=== PATIENT | female | born 1965 | race Caucasian/White ===

== ENCOUNTER → 2018-04-23 11:56 | Outpatient (CLI) | payer BC, SELFPAY ==
[2018-04-23 13:41] LABS: Hemoglobin A1c 8.4 % (4.2-6.3)
[2018-04-23 13:44] LABS: Absolute Lymphocyte Count 1.08 X10^3/ul (0.83-4.51); Absolute Neutrophil Count 4.9 X10^3/uL (2.0-7.7); Basophil# 0.03 X10^3/uL; Basophil% 0.4 % (0-1); Eosinophil# 0.19 X10^3/uL; Eosinophils% 2.8 % (0-5); Hematocrit 38.9 % (37-47); Hemoglobin 11.9 g/dl (12.0-15.0); Lymphocyte # 1.08 X10^3/ul (4.0); Lymphocyte % 15.9 % (19-41); Mean Corp Hgb Conc 30.6 g/gl (32-36); Mean Corpuscular Hgb 25.4 pg (27.0-32.0); Mean Corpuscular Volume 83.1 fL (81-99); Mean Platelet Vol. 11.2 fl (6.2-12.0); Monocyte# 0.57 X10^3/uL; Monocyte% 8.4 % (0-10); Neutrophil # 4.92 X10^3/uL (2.7-7.7); Neutrophil % 72.2 % (47-70); Platelet Count 285 K/mm3 (150-450); RBC Distribution Width CV 16.2 % (11.6-14.6); RBC Distribution Width SD 48.8 fl (35.1-43.9); Red Blood Count 4.68 M/mm3 (4.2-5.4); White Blood Count 6.8 K/mm3 (4.4-11.0)
[2018-04-23 14:06] LABS: Insulin 7.8 mU/L (2.6-37.6); Vitamin B12 687 pg/mL (211-911); Vitamin D,25 Hydroxy 12.3 ng/mL (29.95-100.01)
[2018-04-23 14:11] LABS: POSITIVE COUNT NO; POSITIVE DIFFERENTIAL NO; POSITIVE MORPHOLOGY NO
[2018-04-23 19:11] LABS: ALB/GLOB Ratio 0.9 RATIO (0.9-2.4); AST(SGOT) 13 U/L (15-37); Alanine Aminotransfer ALT/SGPT 22 U/L (13-56); Albumin, Serum 3.5 g/dL (3.2-5.0); Alkaline Phosphatase 73 U/L (45-117); Anion Gap 9 (5-15); BUN 11 mg/dL (7-18); BUN/Creat Ratio 15.1 RATIO (10-20); CRP 7.73 mg/L (0.0-3.0); Calcium,Total 8.4 mg/dL (8.5-10.1); Chloride 106 mmol/L (98-107); Creatinine, Serum 0.73 mg/dL (0.55-1.02); EST Glomerular Filtration Rate 90 mL/min (>60); Est Glom Filt Rate - Afr Amer 109 mL/min (>60); Estradiol 297.3 pg/mL; Follicle Stimulating Hormone 3.8 mIU/mL; Free T3 2.4 pg/mL (2.18-3.98); Globulin 4.1 g/dL (2.2-4.2); Glucose 119 mg/dL (74-106); Potassium 3.9 mmol/L (3.5-5.1); Protein, Total 7.6 g/dL (6.4-8.2); Sodium Level 139 mmol/L (136-145); T4 Free Direct 0.96 ng/dL (0.76-1.46); Thyroid Stim Hormone (TSH) 5.16 uIU/mL (0.358-3.74)
[2018-04-26 20:06] LABS: Testosterone, % Free 1.57 % (0.50-2.80); Testosterone, Free 0.13 ng/dL (0.10-0.85); Testosterone, Total 8 ng/dL (3-41)
[2018-04-28 16:09] LABS: Insulin Like Growth Factor 165 ng/mL (57-195)
== END ==
DX: N95.1 Menopausal and female climacteric states (principal); R53.83 Other fatigue; R68.82 Decreased libido; E07.9 Disorder of thyroid, unspecified; E55.9 Vitamin D deficiency, unspecified; E53.8 Deficiency of other specified B group vitamins; R73.01 Impaired fasting glucose; E16.1 Other hypoglycemia; E23.3 Hypothalamic dysfunction, not elsewhere classified; R79.82 Elevated C-reactive protein (CRP)
CPT/HCPCS: 36415; 80053; 82306; 82607; 82670; 82746; 83001; 83036; 83525; 84144; 84305; 84402; 84403; 84439; 84443; 84481; 85025; 86140

== ENCOUNTER → 2018-07-23 14:19 | Outpatient (CLI) | payer BC, SELFPAY ==
[2018-07-23 15:10] LABS: Hemoglobin A1c 7.4 % (4.2-6.3)
[2018-07-23 15:13] LABS: ALB/GLOB Ratio 1.1 RATIO (0.9-2.4); AST(SGOT) 16 U/L (15-37); Alanine Aminotransfer ALT/SGPT 23 U/L (13-56); Albumin, Serum 3.8 g/dL (3.2-5.0); Alkaline Phosphatase 68 U/L (45-117); BUN 13 mg/dL (7-18); BUN/Creat Ratio 18.4 RATIO (10-20); Calcium,Total 8.7 mg/dL (8.5-10.1); Creatinine, Serum 0.71 mg/dL (0.55-1.02); EST Glomerular Filtration Rate 93 mL/min (>60); Est Glom Filt Rate - Afr Amer 112 mL/min (>60); Globulin 3.6 g/dL (2.2-4.2); Glucose 114 mg/dL (74-106); Protein, Total 7.4 g/dL (6.4-8.2); Sodium Level 140 mmol/L (136-145)
[2018-07-23 15:14] LABS: Anion Gap 10 (5-15); CRP 5.41 mg/L (0.0-3.0); Chloride 105 mmol/L (98-107); Free T3 2.1 pg/mL (2.18-3.98); T4 Free Direct 0.92 ng/dL (0.76-1.46); Thyroid Stim Hormone (TSH) 3.49 uIU/mL (0.358-3.74)
[2018-07-28 15:21] LABS: T3 Reverse 22.4 ng/dL (9.2-24.1)
== END ==
DX: E07.9 Disorder of thyroid, unspecified (principal); R73.01 Impaired fasting glucose; R79.82 Elevated C-reactive protein (CRP)
CPT/HCPCS: 36415; 80053; 83036; 84439; 84443; 84481; 84482; 86140

== ENCOUNTER 2020-04-08 18:50 | Emergency (ER) | payer OTHER, SELFPAY ==
[2020-04-08 18:51] VITALS: BP 124/80; PULSE 124; RESP 20; TEMP 38.7; O2SAT 96; BMI 31.0
[2020-04-08] MEDS: Ibuprofen 600 MG Tablet PO (19:20)
--- NOTE | 2020-04-08 19:44 | EKG12_ITS ---
Test Reason : DYSRHYTHMIA Blood Pressure : / mmHG Vent. Rate : 093 BPM Atrial Rate : 093 BPM P-R Int : 134 ms QRS Dur : 088 ms QT Int : 338 ms P-R-T Axes : 046 -16 008 degrees QTc Int : 420 ms Normal sinus rhythm Poor R- wave Progression Confirmed by LADONNA RAMACHANDRAN, [place] ([id number]), scientific publications editor NIRANJAN RAINES ([id number]) on 04/11/2020 2:18:12 PM Referred By: RONNI Confirmed By:CHEYENNE DOUGHERTY MD
--- NOTE | 2020-04-08 19:53 | ED.DCSUM_ITS ---
History of Present Illness Chief Complaint: Fever Informant: Patient Narrative: 54-year-old female with no past medical history presents with concern for fever, chills, cough, malaise. States that this is been present for the past 1 week. States that she had exposure to someone with coronavirus 2 weeks ago. Denies any nausea, vomiting, chest pain, diaphoresis. States that she feels that she has not been eating and drinking well. Patient is not a current smoker. Past Medical History - Allergies and Home Meds Allergies/Adverse Reactions: Allergies No Known Allergies Allergy (Verified 04/08/20 18:51) Primary Care Physician: Care Physician,No Primary [Primary Care Provider] - Prior records reviewed: Yes Past Medical History: None Surgical History: noncontributory Lives: With Family Smoking Status: Never smoker Alcohol: None Drugs: None Review of Systems General: Reports: Chills, Fever, Malaise. Denies: Sweats Eyes: Denies: Visual changes - bilaterally, Diplopia ENT: Denies: Rhinorrhea, Sore throat Cardiovascular: Denies: Chest pain, Palpitations Respiratory: Reports: Cough. Denies: Dyspnea, Dyspnea on exertion Gastrointestinal: Denies: Abdominal pain, Nausea, Vomiting, Diarrhea, Melena, Hematochezia Genitourinary: Denies: Dysuria, Hematuria, Frequency Musculoskeletal: Denies: Back pain, Extremity Pain Skin: Denies: Rash, Wounds Neurological: Denies: Headache, Weakness, Numbness Physical Exam Vital Signs/Narrative: Vital Signs Temp Pulse Resp BP Pulse Ox 04/08/20 18:51 101.6 F H 124 H 20 H 124/80 H 96 Inital Vital Signs reviewed: Yes General: Well nourished, Well developed, No Acute Distress Head: Normocephalic, Atraumatic Eyes: Perrl, EOMI ENT: Moist mucous membranes, No rhinorrhea Neck: Supple, Nontender Cardiovascular: Regular rhythm, No murmurs, Tachycardia Respiratory: No distress, Chest nontender, - - Bilateral coarse breathe sounds Abdomen: Soft, Nontender, Nondistended, Normal bowel sounds Back: Nontender, Normal Inspection Extremities: Nontender, No edema Skin: Normal color, No rash Neurological: Alert, Oriented x3, Cranial nerves II-XII grossly intact, Normal Strength, Normal Sensation Psychological: Normal affect, Normal Mood Diagnostic/Tx/Re-eval Clinical Impression(s) from Imaging Studies Chest X-Ray 04/08/20 20:25 IMPRESSION: Patchy small bilateral pulmonary infiltrates consistent with a pneumonic process of viral/atypical or typical nature. Electronically Signed: Juliana Woodall MD at 20:41 EST , Service support , Laboratory Data 04/08/20 04/08/20 04/08/20 20:23 20:23 20:23 WBC 8.0 RBC 4.29 Hgb 12.8 Hct 39.1 MCV 91.1 MCH 29.8 MCHC 32.7 RDW Std Deviation 40.6 RDW Coeff of Batsheva 12.2 Plt Count 239 MPV 10.3 Immature Gran % (Auto) 0.600 Neut % (Auto) 86.5 H Lymph % (Auto) 6.8 L [place] % (Auto) 5.8 Eos % (Auto) 0.0 Baso % (Auto) 0.3 Absolute Neuts (auto) 6.9 Absolute Lymphs (auto) 0.54 L Nucleated RBC % 0 Differential Comment SCANNED PT 13.8 INR 1.1 APTT 33.2 Sodium 135 L Potassium 3.6 Chloride 103 Carbon Dioxide 24.0 Anion Gap 8 BUN 8 Creatinine 0.76 Estim Creat Clear Calc 71.63 Est GFR (MDRD) Af Amer 102 Est GFR (MDRD) Non-Af 85 BUN/Creatinine Ratio 10.5 Glucose 167 H Lactic Acid Calcium 8.4 L Total Bilirubin 0.70 AST 16 ALT 23 Alkaline Phosphatase 72 Troponin I < 0.015 Total Protein 7.5 Albumin 2.9 L Globulin 4.6 H Albumin/Globulin Ratio 0.6 L 04/08/20 20:23 WBC RBC Hgb Hct MCV MCH MCHC RDW Std Deviation RDW Coeff of Batsheva Plt Count MPV Immature Gran % (Auto) Neut % (Auto) Lymph % (Auto) [place] % (Auto) Eos % (Auto) Baso % (Auto) Absolute Neuts (auto) Absolute Lymphs (auto) Nucleated RBC % Differential Comment PT INR APTT Sodium Potassium Chloride Carbon Dioxide Anion Gap BUN Creatinine Estim Creat Clear Calc Est GFR (MDRD) Af Amer Est GFR (MDRD) Non-Af BUN/Creatinine Ratio Glucose Lactic Acid 0.9 Calcium Total Bilirubin AST ALT Alkaline Phosphatase Troponin I Total Protein Albumin Globulin Albumin/Globulin Ratio - Rhythm Strip Rhythm Strip: Sinus Rhythm Rate: 93 Ectopy: None - EKG Initial EKG Interpretation: Sinus Rhythm - Normal sinus rhythm at 93 bpm. WI interval 134 ms. QTC of 420 ms. No evidence of ST elevation or depression at this time. - Medical Decision Making Patient appears well nontoxic. Initially febrile and tachycardic. Given Tylenol which improved her symptoms. Chest x-ray concerning for viral pneumonia. No hypoxemia. KG nonischemic. Troponin negative. Patient will be discharged home and advised on continued supportive care. Outpatient Covid testing will be sent. Asked to return for worsening shortness of breath. Patient agreeable and discharged home in stable condition. Impression: 1. URI 2. Possible COVID 19 pneumonitis ED Disposition - Plan for ED Patient: Disposition: Home or Assisted Living Instructions: ED PNEUMONITIS Adult Additional Instructions: Please return for worsening shortness of breathe. Follow up with PCP in 1-2 days. Print Language: Indian
[2020-04-08 20:07] VITALS: O2SAT 96
[2020-04-08 20:25] VITALS: TEMP 37.9
--- NOTE | 2020-04-08 20:25 | RAD_ITS ---
STUDY: X-RAY CHEST REASON FOR EXAM: Female, 54 years old. fever, cough, loss of taste and smell TECHNIQUE: 1 view COMPARISON: None. FINDINGS: The lung gardner are well-expanded with small bilateral infiltrates in the mid lung zones, lower lung zones and right upper lobe. There is no demonstrated pleural abnormality. Normal size heart. Normal mediastinum and ramon. Normal visualized pulmonary arteries. Normal visualized aortic arch and descending thoracic aorta. Normal visualized thoracic spine. Normal visualized ribs, clavicles, and shoulders. There is no demonstrated abnormality of the visualized soft tissue structures of the upper abdomen. RAD/Chest 1 View (Portable) IMPRESSION: Patchy small bilateral pulmonary infiltrates consistent with a pneumonic process of viral/atypical or typical nature. Electronically Signed: Juliana Woodall MD at 20:41 EST , Service support ,
--- NOTE | 2020-04-08 20:30 | ED.RN ---
PT TOOK TYLENOL AT 1700. PER DR. CONNORS, OK TO HOLD MEDICATION AT THIS TIME.
[2020-04-08 20:35] LABS: Absolute Lymphocyte Count 0.54 X10^3/uL (0.83-4.51); Absolute Neutrophil Count 6.9 X10^3/uL (2.0-7.7); Basophil# 0.02 X10^3/uL; Basophil% 0.3 % (0-1); Hematocrit 39.1 % (37-47); Hemoglobin 12.8 g/dL (12.0-15.0); Lymphocyte # 0.54 X10^3/ul (4.0); Lymphocyte % 6.8 % (19-41); Mean Corp Hgb Conc 32.7 g/dL (32-36); Mean Corpuscular Hgb 29.8 pg (27.0-32.0); Mean Corpuscular Volume 91.1 fL (81-99); Mean Platelet Vol. 10.3 fl (6.2-12.0); Monocyte# 0.46 X10^3/uL; Monocyte% 5.8 % (0-10); NRBC Flagged by Analyzer 0 % (0-5); Neutrophil # 6.91 X10^3/uL (2.7-7.7); Neutrophil % 86.5 % (47-70); POSITIVE DIFFERENTIAL YES; Platelet Count 239 K/mm3 (150-450); RBC Distribution Width CV 12.2 % (11.6-14.6); RBC Distribution Width SD 40.6 fl (35.1-43.9); Red Blood Count 4.29 M/mm3 (4.2-5.4)
[2020-04-08 20:41] LABS: Differential Indicated SCAN CRITERIA MET
[2020-04-08 20:44] LABS: International Normalized Ratio 1.1; Prothrombin Time (Protime)PT. 13.8 SECONDS (11.7-14.9)
[2020-04-08 20:45] LABS: Partial Thromboplast Time 33.2 Seconds (24.1-36.2)
[2020-04-08 20:57] LABS: Lactic Acid 0.9 mmol/L (0.4-1.9)
[2020-04-08 21:04] LABS: ALB/GLOB Ratio 0.6 RATIO (0.9-2.4); AST(SGOT) 16 U/L (15-37); Alanine Aminotransfer ALT/SGPT 23 U/L (13-56); Albumin, Serum 2.9 g/dL (3.2-5.0); Alkaline Phosphatase 72 U/L (45-117); Anion Gap 8 (5-15); BUN 8 mg/dL (7-18); BUN/Creat Ratio 10.5 RATIO (10-20); Calcium,Total 8.4 mg/dL (8.5-10.1); Chloride 103 mmol/L (98-107); Creatinine, Serum 0.76 mg/dL (0.55-1.02); Differential Comment SCANNED; EST Glomerular Filtration Rate 85 mL/min (>60); Est Glom Filt Rate - Afr Amer 102 mL/min (>60); Estimated Creatinine Clearance 71.63 ml/min; Globulin 4.6 g/dL (2.2-4.2); Glucose 167 mg/dL (74-106); Potassium 3.6 mmol/L (3.5-5.1); Protein, Total 7.5 g/dL (6.4-8.2); Sodium Level 135 mmol/L (136-145)
[2020-04-08 21:26] LABS: Bacteria 0 SEEN /hpf (None Seen); Red Blood Cells-Urine 0 SEEN /hpf (0-5); White Blood Cells 0 SEEN /hpf (0-5)
[2020-04-08 21:27] LABS: Color, Urine Amber (Yellow); Glucose, Dipstick Normal (Normal); Leukocyte Esterase-Dipstick 25 /ul (Negative); Nitrite-Dipstick Negative (Negative); Occult Blood-Urine 10 /ul (Negative); Protein-Dipstick 30 mg/dl (Negative); Specific Gravity, Urine 1.015 (1.002-1.030); Urine Clarity Clear (Clear); Urine Urobilinogen 1 mg/dl (Normal)
[2020-04-08 21:37] VITALS: TEMP 37.3
[2020-04-08 21:39] VITALS: PULSE 58; RESP 18; O2SAT 92
[2020-04-08 22:07] LABS: Urine Bilirubin Dipstick 1 mg/dL (Negative)
[2020-04-08 22:08] LABS: Ketone-Dipstick 150 mg/dl (Negative)
[2020-04-08 22:09] LABS: Mucous, Urine RARE /hpf (<or=2+); Squamous Epithelial Cells - UA 0-5 SEEN /hpf (5-10)
[2020-04-08 23:04] VITALS: BP 99/58; PULSE 87; RESP 18; TEMP 37.2; O2SAT 97
== END 2020-04-08 22:55 | disposition home or self-care (01) ==
PROVIDERS: Emergency Provider Emergency Medicine
DX: U07.1 COVID-19 (principal); J12.89 Other viral pneumonia
CPT/HCPCS: 36415; 71045; 80053; 81001; 83605; 84484; 85025; 85610; 85730; 87040; 87086; 87088; 87635; 93005; 99285; U0003

== ENCOUNTER → 2021-02-10 10:47 | Outpatient (CLI) | payer OTHER, SELFPAY ==
[2021-02-10 11:14] LABS: Hemoglobin 14.3 g/dL (12.0-15.0); Mean Corp Hgb Conc 33.3 g/dL (32-36); Mean Corpuscular Hgb 30.2 pg (27.0-32.0); Mean Corpuscular Volume 90.9 fL (81-99); Mean Platelet Vol. 9.8 fl (6.2-12.0); Platelet Count 250 K/mm3 (150-450); RBC Distribution Width CV 11.8 % (11.6-14.6); RBC Distribution Width SD 39.6 fl (35.1-43.9); Red Blood Count 4.73 M/mm3 (4.2-5.4); White Blood Count 5.7 K/mm3 (4.4-11.0)
[2021-02-10 11:43] LABS: Vitamin D,25 Hydroxy 36.9 ng/mL
[2021-02-10 11:49] LABS: Anion Gap 6 (5-15); BUN 13 mg/dL (7-18); BUN/Creat Ratio 17.9 RATIO (10-20); Chloride 104 mmol/L (98-107); Creatinine, Serum 0.73 mg/dL (0.55-1.02); EST Glomerular Filtration Rate 89 mL/min (>60); Est Glom Filt Rate - Afr Amer 107 mL/min (>60); Glucose 215 mg/dL (74-106); Potassium 4.5 mmol/L (3.5-5.1); Sodium Level 137 mmol/L (136-145); Thyroid Stim Hormone (TSH) 5.15 uIU/mL (0.358-3.74)
== END ==
PROVIDERS: PCP Student in an Organized Health Care Education/Training Program; Referring Provider Student in an Organized Health Care Education/Training Program; Visit Provider Student in an Organized Health Care Education/Training Program
DX: R03.0 Elevated blood-pressure reading, without diagnosis of hypertension (principal); E01.0 Iodine-deficiency related diffuse (endemic) goiter; E55.9 Vitamin D deficiency, unspecified; Z86.16 Personal history of COVID-19
CPT/HCPCS: 36415; 80048; 82306; 84443; 85027

== ENCOUNTER 2021-10-18 21:19 | Emergency (ER) | payer OTHER, SELFPAY ==
[2021-10-18 21:20] VITALS: BP 177/101; PULSE 107; RESP 18; TEMP 36.7; O2SAT 98; BMI 31.8
--- NOTE | 2021-10-18 22:08 | CT_ITS ---
STUDY: CT SOFT TISSUE NECK WITH CONTRAST REASON FOR EXAM: Female, 56 years old. posterior neck abscess RADIATION DOSAGE (If Supplied By Facility): CTDIvol = ( 17.97 ) mGy, DLP = ( 529.85 ) mGycm TECHNIQUE: The patient was scanned in a multi-detector CT scanner. High resolution transaxial imaging was performed following intravenous administration of IV 75mL Isovue-370. Sagittal and coronal images were reconstructed. Individualized dose optimization techniques were used for this CT. COMPARISON: None. FINDINGS: There is induration of the posterior midline subcutaneous tissue. This extends over a distance of 4 cm. The margins are irregular making it difficult to accurately measure. There is a small amount of air within this structure just to the left of the midline consistent with abscess formation. There is overlapping skin thickening as well. There is a gap in the skin thickening in the midline which may be a drainage focus. CT/Soft Tissue Neck WITH Contrast IMPRESSION: There is a 4 cm abscess in the midline posteriorly. Electronically Signed: Roberto Childers MD at 0:26 EDT ,
--- NOTE | 2021-10-18 22:09 | EX.ED.DYSGE1 ---
HPI History of Present Illness Chief Complaint: Abscess Informant: patient and spouse/S.O. Narrative Narrative: 56-year-old female presenting to the emergency department with a neck abscess. Patient states that she scratched the back of her neck about 10 days ago and it is progressively worsened. She notes pain and swelling. There has been some drainage from it. She has never had anything like this before. She states that she is technically a diabetic. She denies any fevers. There is no arm symptoms/neurologic symptoms. PFSH REPLACED BY [facility] Medical History Diabetes Home Medications cephalexin 500 mg PO Q6 #40 capsule 10/19/21 [Rx Last Taken Unknown] oxycodone-acetaminophen 1 tab PO Q6H PRN PRN 3 Days #12 tablet 10/19/21 [Rx Last Taken Unknown] sulfamethoxazole-trimethoprim 1 tab PO BID #20 tablet 10/19/21 [Rx Last Taken Unknown] Allergy/AdvReac Type Severity Reaction Status Date / Time No Known Allergies Allergy Verified 10/18/21 21:21 Social History (Updated 10/18/21 @ 22:[address] Benito Clemens, DO) current gender identity: female Smoking Status: Never smoker ROS ROS ED Constitutional Constitutional ED: Denies chills, fever(s) or weight loss Eyes Eyes: Denies change in vision or diplopia ENT ENT ED: Denies ear pain, rhinorrhea or sore throat Cardiovascular Cardiovascular: Denies chest pain, orthopnea, palpitations or racing heartbeat Respiratory/Chest Respiratory/Chest: Denies cough, dyspnea or orthopnea Gastrointestinal Gastrointestinal: Denies abdominal pain, diarrhea, nausea or vomiting Genitourinary Genitourinary ED: Denies dysuria, hematuria or urinary frequency Musculoskeletal Musculoskeletal: Reports neck pain; Denies arthralgias or myalgias Integumentary Reports abscess; Denies rash Neurologic Neurologic: Denies headache(s) or weakness Psychiatric Psychiatric: Denies anxiety, depression, suicidal ideation or suicidal thoughts Endocrine Endocrinology: Denies polydipsia, polyphagia or polyuria Allergic/Immunologic Allergic/Immunologic ED: Denies mouth swelling, tongue swelling or urticaria EXAM Physical Exam Const Vital Signs: 10/18/21 21:20 Temperature 98.1 F Temperature Source Temporal Pulse Rate 107 H Respiratory Rate 18 Blood Pressure 177/101 H Blood Pressure Mean 126 Pulse Ox 98 Oxygen Delivery Method Room Air Positive well nourished and well developed General Appearance ED: well developed HEENT Reports normocephalic, head/scalp atraumatic, TM's clear and moist mucous membranes Negative for trauma Tympanic Membrane ED: Yes TM's clear Eyes PERRL and EOMs intact bilaterally Neck no lymphadenopathy, supple and no JVD Neck Narrative: There is a large firm area in the posterior neck. There is some erythema and a central area that is opened and has purulence from it. Resp normal respiratory effort and clear to auscultation bilaterally Cardio regular rate, regular rhythm and no murmurs GI normal to inspection, nondistended, normoactive bowel sounds and non-tender Palpation: soft Back/Spine no CVA tenderness and normal ROM Extremity normal to inspection General Extremety ED: Negative for edema General Extremity: Negative for edema Neuro oriented x3, CN's II-XII intact bilaterally and no sensory deficits noted Sensorium / Orientation: alert Sensory Exam: No sensory level loss detected Motor Exam: strength 5/5 throughout Psych mental status grossly normal Mood & Affect: Negative for depressed or tearful Skin no rashes or lesions noted and no wounds MDM MDM MDM Narrative Medical decision making narrative: White blood cell count 9.5. Glucose 253. CT of the neck demonstrates a 4 cm abscess in the midline posteriorly. As I review it and I also reviewed the wound I do not feel an area of fluctuance. There is a small foci of air that I see on the CT. In discussing with the patient and her regarding I&D think it is reasonable to try to find this area which most likely is deeper than expected. The area was washed with Betadine allowed to dry. 1% lidocaine instilled into the wound. A incision was made. Only blood was removed. The wound was then probed using curved hemostats. A pocket was found and opened with a moderate amount of purulence drained. This was irrigated and packing placed. Wound culture will be sent. She will be discharged home on Keflex and Bactrim and oxycodone first doses here. Patient was advised on home care return instructions and removing the packing in 72 hours. Lab Data Attestation: I reviewed the patient's lab results. Labs: Laboratory Results - last 24 hr 10/18/21 10/18/21 22:20 22:20 WBC 9.5 RBC 4.51 Hgb 13.7 Hct 40.9 MCV 90.7 MCH 30.4 MCHC 33.5 RDW Std Deviation 39.8 RDW Coeff of Batsheva 11.9 Plt Count 275 MPV 9.8 Immature Gran % (Auto) 0.600 Neut % (Auto) 79.8 H Lymph % (Auto) 9.7 L [place] % (Auto) 7.0 Eos % (Auto) 2.5 Baso % (Auto) 0.4 Absolute Neuts (auto) 7.6 Absolute Lymphs (auto) 0.92 Nucleated RBC % 0 Sodium 138 Potassium 4.1 Chloride 108 H Carbon Dioxide 24.0 Anion Gap 6 BUN 12 Creatinine 0.74 Estim Creat Clear Calc 71.89 Est GFR (MDRD) Af Amer 106 Est GFR (MDRD) Non-Af 87 BUN/Creatinine Ratio 16.3 Glucose 253 H Calcium 9.0 Radiography Diagnostic Testing: Clinical Impression(s) from Imaging Studies Soft Tissue Neck CT 10/18/21 22:08 IMPRESSION: There is a 4 cm abscess in the midline posteriorly. Electronically Signed: Roberto Childers MD at 0:26 EDT , Discharge Plan Triage Chief Complaint: Abscess ED Provider: Benito Clemens Dx/Rx/DC Orders Clinical Impression: Cutaneous abscess of neck Instructions: ED Abscess Antibiotic Treatment Only Prescriptions: New oxycodone-acetaminophen [oxycodone-acetaminophen] 1 TABLET tablet 1 tab PO Q6H PRN PRN (Reason: Pain) 3 Days Qty: 12 RF: 0 cephalexin [cephalexin] 500 MG capsule 500 mg PO Q6 Qty: 40 RF: 0 sulfamethoxazole-trimethoprim [sulfamethoxazole-trimethoprim] 1 TABLET tablet 1 tab PO BID Qty: 20 RF: 0 Primary Care Provider: Gennaro Talley Referrals: Gennaro Talley DO [Primary Care Provider] - As Needed Disposition Disposition: Home, Self Care
[2021-10-18 22:34] LABS: Absolute Lymphocyte Count 0.92 X10^3/uL (0.83-4.51); Absolute Neutrophil Count 7.6 X10^3/uL (2.0-7.7); Basophil# 0.04 X10^3/uL; Basophil% 0.4 % (0-1); Eosinophil# 0.24 X10^3/uL; Eosinophils% 2.5 % (0-5); Hematocrit 40.9 % (37-47); Hemoglobin 13.7 g/dL (12.0-15.0); Lymphocyte # 0.92 X10^3/ul (0.83-4.51); Lymphocyte % 9.7 % (19-41); Mean Corp Hgb Conc 33.5 g/dL (32-36); Mean Corpuscular Hgb 30.4 pg (27.0-32.0); Mean Corpuscular Volume 90.7 fL (81-99); Mean Platelet Vol. 9.8 fl (6.2-12.0); Monocyte# 0.67 X10^3/uL; NRBC Flagged by Analyzer 0 % (0-5); Neutrophil % 79.8 % (47-70); Platelet Count 275 K/mm3 (150-450); RBC Distribution Width CV 11.9 % (11.6-14.6); RBC Distribution Width SD 39.8 fl (35.1-43.9); Red Blood Count 4.51 M/mm3 (4.2-5.4); White Blood Count 9.5 K/mm3 (4.4-11.0)
[2021-10-18 22:47] LABS: Anion Gap 6 (5-15); BUN 12 mg/dL (7-18); BUN/Creat Ratio 16.3 RATIO (10-20); Chloride 108 mmol/L (98-107); Creatinine, Serum 0.74 mg/dL (0.55-1.02); EST Glomerular Filtration Rate 87 mL/min (>60); Est Glom Filt Rate - Afr Amer 106 mL/min (>60); Estimated Creatinine Clearance 71.89 ml/min; Glucose 253 mg/dL (74-106); Potassium 4.1 mmol/L (3.5-5.1); Sodium Level 138 mmol/L (136-145)
[2021-10-18] MEDS: Smz/Tmp Ds Tablet 1 TABLET PO (23:37)
[2021-10-18] MEDS: Cephalexin 250 MG Capsule 500 MG PO (23:37)
[2021-10-19] MEDS: oxyCODONE 5 MG Tablet 10 MG PO (00:40)
[2021-10-19] MEDS: Lidocaine 1% (20 ml mdv) 20 ML Vial INFILT (00:58)
== END 2021-10-19 01:07 | disposition home or self-care (01) ==
PROVIDERS: Emergency Provider Emergency Medicine; PCP Student in an Organized Health Care Education/Training Program; Visit Provider Emergency Medicine
DX: L02.11 Cutaneous abscess of neck (principal)
CPT/HCPCS: 10061; 70491; 80048; 85025; 87070; 87077; 87186; 87205; 99283; Q9967

== ENCOUNTER 2021-10-30 06:23 | Emergency (ER) | payer OTHER, SELFPAY ==
[2021-10-30 06:24] VITALS: BP 176/95; PULSE 97; RESP 15; TEMP 36.2; O2SAT 99; BMI 32.3
--- NOTE | 2021-10-30 07:20 | EDS_ITS ---
HPI History of Present Illness Chief Complaint: Abscess Informant: patient Narrative Narrative: Patient was here about 12 days ago and had I&D of an abscess. She had had slow building up for about 7 days prior to that. She states it was on the neck but kind of spread out over the shoulders. She had it drained. The wick stayed in for 3 days. She took her Bactrim and Keflex. She was doing well. She states the swelling went down significantly. She is feeling better. But she shows up because she notices just over the last day it starting to get a little bit firm again. Its not spreading out yet. It is getting a little redder. No drainage. She has not had fevers chills. She states she feels well. Her blood sugars she has been checking a couple times a day. They have always been running in the low 100s. No numbness tingling weakness. She can move her neck well. She states is overall still much better than when she was first here but it started to turn around and get a little bit worse just over the last 1 to 2 days. [facility] Medical History Diabetes Home Medications NK 10/30/21 [History Last Taken Unknown] clindamycin HCl [Cleocin HCl] 300 mg PO Q6H #40 cap 10/30/21 [Rx Last Taken Unknown] Allergy/AdvReac Type Severity Reaction Status Date / Time No Known Allergies Allergy Verified 10/30/21 06:27 Social History Smoking Status: Never smoker ROS ROS ED Constitutional Constitutional ED: Denies chills, fever(s), subjective or sweats ENT ENT ED: Reports other Details: See history of present illness peer ; Denies rhinorrhea Cardiovascular Cardiovascular: Denies chest pain or palpitations Respiratory/Chest Respiratory/Chest: Denies cough or dyspnea Gastrointestinal Gastrointestinal: Denies nausea or vomiting Musculoskeletal Musculoskeletal: Reports neck pain; Denies arthralgias or myalgias Integumentary Reports other Details: See history of present illness Neurologic Neurologic: Denies headache(s), paresthesias or weakness Endocrine Endocrinology: Reports other Details: Blood sugars have been well controlled in the low 100s. ; Denies polydipsia or polyuria Allergic/Immunologic Allergic/Immunologic ED: Denies urticaria EXAM Physical Exam Const Vital Signs: 10/30/21 06:24 Temperature 97.2 F L Temperature Source Temporal Pulse Rate 97 Respiratory Rate 15 Blood Pressure 176/95 H Blood Pressure Mean 122 Pulse Ox 99 Oxygen Delivery Method Warm Humidified Isolette Positive well nourished and well developed General Appearance ED: well developed and NAD; Negative for cyanotic or diaphoretic HEENT Reports moist mucous membranes Negative for trauma or tenderness Eyes EOMs intact bilaterally Neck Neck Narrative: There is an area of erythema on the back of her neck that is about 2 to 2-1/2 cm around. In the center there is about a 5 mm area that looks a bit white. This area is firm but is not fluctuant. It does not spread out from past this area. Chest Wall inspection of chest normal Resp normal respiratory effort and clear to auscultation bilaterally Cardio regular rate and regular rhythm Neuro Sensorium / Orientation: alert Skin Skin Narrative: See above MDM MDM MDM Narrative Medical decision making narrative: I discussed options with the patient. She states is nowhere near as bad as it was when she came in the first time but it is trending toward worse since she stopped the antibiotics. I explained that I would like to avoid doing a CT if we can as she just had that done. She is afebrile and her blood sugars have been well controlled. We agreed to do a bedside ultrasound. This did show a small pocket of fluid that was about 1 cm deep directly below the white central area. We agreed to proceed with drainage. There is not a large pocket but I think it still worth draining. Procedure: Incision and drainage of abscess: The area around the wound was prepped and draped. It was cleansed with alcohol. I injected 1% lidocaine without epinephrine around the area. Total of 1.5 cc. Good anesthesia. An 11 blade was used to incise right in the center where we had seen the area on ultrasound. We got some slight blood and purulence out of this. It was not a large amount but the pocket on ultrasound was well less than a centimeter around. We broke up loculations. No further purulence was obtained. It was rinsed. We placed a wick in the area and this will stay in for several days. I will send the patient home on clindamycin. I explained to the patient that if she has increasing pain, redness, fevers, nausea, rising sugar she should come back in. At that point we would want to pursue further blood work and CTs. It is even possible she may need admission or even a more formal procedure. But at this time she overall feels well but is just trending toward worse. Hopefully with drainage and antibiotics we can get this better. Discharge Plan Triage Chief Complaint: Abscess ED Provider: Asher Cartagena Dx/Rx/DC Orders Clinical Impression: Abscess of neck Instructions: ED Abscess Incision And Drainage Prescriptions: New clindamycin HCl [Cleocin HCl] 300 MG capsule 300 mg PO Q6H Qty: 40 RF: 0 No Action NK RF: 0 Primary Care Provider: Gennaro Talley Referrals: Gennaro Talley DO [Primary Care Provider] - 3-5 Days Disposition Disposition: Home, Self Care
[2021-10-30] MEDS: Lidocaine 1% (20 ml mdv) 20 ML Vial INFILT (07:37)
[2021-10-30 07:38] VITALS: BP 129/74; PULSE 61; RESP 15; O2SAT 98
[2021-10-30] MEDS: Clindamycin HCl 150 MG Capsule 300 MG PO (07:38)
== END 2021-10-30 07:38 | disposition home or self-care (01) ==
PROVIDERS: Emergency Provider Emergency Medicine; PCP Student in an Organized Health Care Education/Training Program; Visit Provider Emergency Medicine
DX: L02.11 Cutaneous abscess of neck (principal)
CPT/HCPCS: 10061; 10060; 99283

== ENCOUNTER 2023-07-17 17:11 | Emergency (ER) | payer OTHER, SELFPAY ==
[2023-07-17 17:13] VITALS: BP 153/95; PULSE 123; RESP 18; TEMP 36.6; BMI 32.3
[2023-07-17 17:16] VITALS: BP 153/95; PULSE 123; RESP 18; TEMP 36.6
--- NOTE | 2023-07-17 17:27 | EX.ED.DYSGE1 ---
HPI History of Present Illness Chief Complaint: [facility]cess [facility] Medical History Diabetes Home Medications clindamycin HCl 300 mg capsule (Cleocin HCl) 300 mg PO Q6H #40 caps 10/30/21 [Rx Last Taken Unknown] cephalexin 500 mg capsule 500 mg PO TID #21 caps 07/17/23 [Rx Last Taken Unknown] sulfamethoxazole 800 mg-trimethoprim 160 mg tablet (Bactrim DS) 1 tab PO BID #14 tabs 07/17/23 [Rx Last Taken Unknown] Allergy/AdvReac Type Severity Reaction Status Date / Time No Known Allergies Allergy Verified 07/17/23 17:12 Social History Smoking Status: Never smoker EXAM Physical Exam Const Vital Signs: 07/17/23 17:13 07/17/23 17:16 Temperature 97.9 F 97.9 F Temperature Source Temporal Temporal Pulse Rate 123 H 123 H Respiratory Rate 18 18 Blood Pressure 153/95 H 153/95 H Blood Pressure Mean 114 114 MDM MDM MDM Narrative Medical decision making narrative: HISTORY OF PRESENT ILLNESS: 57 F here with concerns for boils on back of head. NOtes this began 1 week ago. States has history of diabetes but does functional medicine to treat it. sHe is not on any antidiabetic medicine at this time. Notes she had increased swelling, tenderness to palpation and redness to the her posterior occiput. Denies any fevers or chills. Denies any neck stiffness. REVIEW OF SYSTEMS: Pertinent positives: boil Pertinent negatives: Fevers, chills, neck stiffness PHYSICAL EXAM: Nursing triage notes reviewed, Vital signs reviewed Constitutional: please see mdm Skin: Erythematous area approximately 8 x 8 cm noted to the posterior occiput, there is induration but no fluctuance. Ultrasound applied and showed no evidence of obvious drainable abscess showed a small approximately 1 cc amount of fluid. Also noted purulent drainage from the site. No crepitus, no bullae, no pain out of proportion to exam. MEDICAL DECISION MAKING: Chief Complaint: Boil External records reviewed: Seen in 2021 for similar. Factors affecting care: Type 2 diabetes MDM Narrative: Patient was initially tachycardic, afebrile, nontoxic-appearing. Exam with induration however ultrasound showed no evidence of drainable abscess. Area had white-yellow discharge consistent with an already draining likely abscess. There is no clinical evidence suggest necrotizing fasciitis. No indication for incision and drainage at this time. Gave oral antibiotics (bactrim and keflex). Gave strict return precautions. The patient and/or family, caregivers express understanding. The patient and/or family, caregivers agrees with the plan. Shared decision making: I will have a discussion with the patient and or visitors regarding risk/benefits of further testing or admission. They will be made aware of of the risk/benefits inherent in this decision they will be given the opportunity to voice understanding. Total critical care time today provided was at least 0 minutes. This excludes separately billable procedures. Critical care time (if documented) is secondary to the patient having high probability of clinically significant/life threatening deterioration in the patient's condition which required my urgent intervention. Impression: 1. Occipital cellUlitis 2. History of type 2 diabetes Dispo: Discharge home This note was generated with [employer] dictation software. It may contain incorrect words, spelling, and punctuation that were not noted in review of the chart prior to signing. Discharge Plan Triage Chief Complaint: Abscess ED Provider: Ranjith Kyle Dx/Rx/DC Orders Clinical Impression: Cellulitis Instructions: ED Cellulitis Prescriptions: New cephalexin 500 mg capsule 500 mg PO TID Qty: 21 0RF sulfamethoxazole-trimethoprim [Bactrim DS] 800-160 mg tablet 1 tab PO BID Qty: 14 0RF No Action clindamycin HCl [Cleocin HCl] 300 MG capsule 300 mg PO Q6H Qty: 40 0RF Primary Care Provider: Care Physician,Saundra Primary Referrals: Gennaro Talley DO [Non-Staff] - Activity Restrictions/Additional Instructions: Thank you for trusting us with your care today! Please take Tylenol (2 pills, 650 mg), ibuprofen (2 pills, 400 mg) every 6 hours as needed for pain and fever control. Please take antibiotics as prescribed until course complete. Please return to the emergency department if your symptoms change or worsen. If redness increased in size rapidly over a matter of hours. He is not vomiting. He developed severe pain in his causing you to become pale dizzy or lose consciousness. Please follow with your primary care physician for further outpatient evaluation and management. Disposition Disposition: Home, Self Care Discharge Date/Time: 07/17/23 18:19
[2023-07-17] MEDS: Cephalexin 250 MG Capsule 500 MG PO (18:14)
[2023-07-17] MEDS: Smz/Tmp Ds Tablet 1 TABLET PO (18:14)
[2023-07-17 18:16] VITALS: BP 153/95; PULSE 109; RESP 18; TEMP 36.6; O2SAT 95
--- OUTSIDE RECORDS SUMMARY | 2023-07-17 19:39 | XMS RPT_ITS | CCD ---
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 Name Role Phone ElwoodFrida (Retired) Primary Care Provide r Results Test Name Value Interpretation Reference Range Facil ity Encounters Encounter Date Encounter Type Care Provider Facility Start: 10-18-2021 End: 10-18-2021 Subsequent hospital visit by physician [facility] Provider Kirby CARRION Plan of Treatment Date Care Activity Detail Author Start: 02-01-2022 Influenza vaccination INFLUENZA (Sea son Ended) [facility] Start: 09-16-2017 SHINGRIX VACCINE (1 of 2) SHINGRIX V ACCINE (1 of 2) [facility] Start: 09-16-2012 COLOGUARD (FIT-DNA) COLOGUARD (FIT-D NA) [facility] Start: 09-16-2012 Colonoscopy COLONOSCOPY [facility] Start: 09-16-2012 COLORECTAL CANCER SCREENING COLORECTAL CANCER SCREENING [facility] Start: 09-16-[address] COLONOGRAPHY [facility] Start: 09-16-2012 DIABETES SCREEN DIABETES SCREEN [facility] Start: 09-16-2012 FECAL OCCULT BLOOD FECAL OCCULT BLOO D [facility] Start: 09-16-2012 LIPID SCREEN LIPID SCREEN [facility] Start: 09-16-2012 [facility] Start: 2007 Mammography MAMMOGRAM [facility] Start: 09-16-1997 HPV TESTING HPV TESTING [facility] Start: 09-16-1988 PAP TESTING PAP TESTING [facility] Start: 09-16-1986 Urine microalbumin profile DTAP,TDAP ,TD (1 - Tdap) [facility] Start: 09-16-1985 HEPATITIS C SCREENING HEPATITIS C SC REENING [facility] Start: 09-16-1985 HIV SCREENING HIV SCREENING [facility] Start: 1979 Adult depression scr eening assessment DEPRESSION SCREENING [facility] Start: 09-16-1972 COVID-19 VACCINE (#1) COVID-19 VACCI NE (#1) [facility] Payers Date Payer Category Payer Unknown [employer] P[employer] OOS [id number] 2015-Present [phone] [id number] [place] [address] PPO [id number] Social History Date Type Detail Facility Tobacco smoking stat [facility] Tobacco smoking consumption unknown [facility] Start: 1965 Sex Assigned At Not on file [facility] Summary Purpose Family History No Family History Records FoundNo Family History Records Found Advance Directives No Advanced Directives Records FoundNo Advanced Directives Records Found Additional Source Comments INFORMATION SOURCE (unrecogn ized section and content) DATE CREATED AUTHOR AUTHOR'S ORGANIZ ATION 11/04/2021 [facility] jazmin Montes Source Comments (unrecognize d section and content) In the event this informatio n is protected by the Federal Confidentiality of Alcohol and Drug Abuse Patient Records regulations: The Federal rules restrict any use of the information to criminally investigate or prosecute any alcohol or drug abuse patient.[facility] Care Teams (unrecognized sec tion and content) FOR RECORDS PERTAINING TO PATIENTS WHO ARE OR HAVE BEEN ENROLLED IN A CHEMICAL DEPENDENCY/SUBSTANCEABUSE PROGRAM, SOME INFORMATION MAY BE OMITTED. This clinical summary was aggregated from multiple sources. Caution should be exercised in using it in the provision of clinical care. This summary normalizes information from multiple sources, and as a consequence, information in this document may materially change the coding, format and clinical context of patient data. In addition, data may be omitted in some cases. CLINICAL DECISIONS SHOULD BE BASED ON THE PRIMARY CLINICAL RECORDS. [facility] provides no warranty or guarantee of the accuracy or completeness of information in this document.
== END 2023-07-17 18:19 | disposition home or self-care (01) ==
PROVIDERS: Emergency Provider Emergency Medicine; Visit Provider Emergency Medicine
DX: L03.811 Cellulitis of head [any part, except face] (principal); E11.9 Type 2 diabetes mellitus without complications
CPT/HCPCS: 99283